=== PATIENT | female | born 1985 | race Caucasian/White ===

== ENCOUNTER 2017-01-12 11:06 | Emergency (ER) | payer BC ==
--- NOTE | ~2017-01-12 | ER ---
PATIENT'S NAME: CHRISTIE ARECHIGA [facility] AGE: 31 Y [address] ROOM: [place] [address] LOCATION: [facility] ADMIT DATE: 01/12/2017 ER/Outpatient Report DISCHARGE DATE: 01/12/2017 FAMILY PHYSICIAN: Link Canales MD ATTENDING PHYSICIAN: Matt Sandoval Time of arrival: 1106 hours. Time of evaluation: 1110 hours. CHIEF COMPLAINT: Confusion. HISTORY OF PRESENT ILLNESS: The patient is a 31-year-old female, who presents to the emergency department today with a chief complaint of confusion. She reports this started about half an hour prior to arrival. She denies any chest pain. No shortness of breath. No cough. No fevers or chills. No troubles urinating. No back pain. No diarrhea. She does have mild headache. It is 5/10 in severity. She does have some nausea. No abdominal pain. No chemical exposure. The patient was recently diagnosed with fibromyalgia and polyneuropathy and was started on Lyrica 5 days ago. She reports the pain is currently 5/10 in severity. It is sharp. Nothing makes it worse. Nothing makes it better. PAST MEDICAL HISTORY: 1. Fibromyalgia. 2. Polyneuropathy. 3. ADHD. 4. Diabetes. 5. Depression. 6. Obesity. 7. Gestational diabetes. PAST SURGICAL HISTORY: 1. Appendectomy. 2. . SOCIAL HISTORY: The patient smokes 6 to 8 cigarettes per day for 10 years. Denies any alcohol or illicit drug use. ALLERGIES: NO KNOWN DRUG ALLERGIES. MEDICATIONS: Please see list. PATIENT'S NAME: CHRISTIE ARECHIGA [facility] AGE: 31 Y [address] ROOM: [place] [address] LOCATION: [facility] ADMIT DATE: 01/12/2017 ER/Outpatient Report DISCHARGE DATE: 01/12/2017 FAMILY PHYSICIAN: Link Canales MD ATTENDING PHYSICIAN: Matt Sandoval PRIMARY CARE DOCTOR: Ge Luther PA-C. She is seen by Dr. Contreras as well. REVIEW OF SYSTEMS: All systems are reviewed by myself and negative with the exception of those discussed in HPI and past medical history. PHYSICAL EXAMINATION: VITAL SIGNS: Weight 131.2 kg, blood pressure 144/73, pulse 76, respiratory rate 16, temperature 97, and oxygen saturation 98% on room air. GENERAL: The patient is a 31-year-old female, appears of stated age, in no acute distress. HEENT: Normocephalic and atraumatic. Pupils are equal, round, and reactive to light and accommodation. Extraocular motions are intact. Nares are patent bilaterally. TMs are clear. Oropharynx is clear. NECK: Supple. There is no nuchal rigidity. No step-offs or deformities. CARDIOVASCULAR: Regular rate and rhythm. No murmurs, rubs, or gallops. LUNGS: Clear to auscultation bilaterally. No wheezes, rales, or rhonchi. ABDOMEN: Soft, nontender, and nondistended. No rebound, rigidity, or guarding. MUSCULOSKELETAL: The patient moves all 4 extremities. 5/5 muscle strength. NEUROLOGICAL: GCS 15. Alert and oriented x4. Cranial nerves 2 through 12 are intact. Normal finger to nose. Normal rapid hand movement. Equal benefits analyst strength bilaterally. Downward going toes. No clonus. 2/4 reflexes. SKIN: Warm and dry. There is no rashes or lesions noted. LABORATORY DATA AND X-RAYS: CT scan of the head is obtained. I have discussed results with the radiologist that shows no acute process. EKG is obtained and is interpreted by myself at 1203 hours that shows sinus rhythm with a rate of 70. Normal axis. Normal interval. No ST elevation, ST depression, or T-wave inversion. CBC is normal. CMP is normal. LFTs normal. Urinalysis is negative. Coags are normal. Troponin is normal. MRI of the brain is also obtained. I have discussed results with the radiologist shows no acute process. IMPRESSION: 1. Confusion. 2. Initial visit. EMERGENCY DEPARTMENT COURSE: The patient was brought back to the examination room. Seen and evaluated by myself. CT imaging and laboratory analysis obtained as described above. I have discussed the results with the patient and her mother who is at bedside. Her thought process is improved at this time. The patient did require 2 mg of PATIENT'S NAME: CHRISTIE ARECHIGA [facility] AGE: 31 Y [address] ROOM: [place], [place] [address] LOCATION: ED ADMIT DATE: 01/12/2017 ER/Outpatient Report DISCHARGE DATE: 01/12/2017 FAMILY PHYSICIAN: Link Canales MD ATTENDING PHYSICIAN: Matt Sandoval Ativan IV to obtain the MRI. The patient's laboratory analysis and workup is normal. She apparently had some abnormal nerve conduction test by Dr. Contreras. The patient's MRI is normal. There is no evidence of stroke. The patient was just started on Lyrica 5 days ago, unclear as to the exact etiology, certainly may be an adverse reaction to the medications via psychological. I see no evidence of dangerous or scary causes at this time. I do feel she is safe for further outpatient evaluation. DISPOSITION: The patient is discharged to home in good condition. DO SHIRLEY CANCINOR/modl /[id number] d: 01/12/17 1451 t: 01/12/17 1610, OUTPATIENT REPORT
[2017-01-12 11:56] LABS: BASOPHIL # 0.1 K/uL (0.0-0.2); BASOPHIL % 0.7 %; EOSINOPHIL # 0.1 K/uL (0.0-0.5); EOSINOPHIL % 1.3 %; HEMATOCRIT 39.2 % (33.0-46.0); HEMOGLOBIN 12.9 g/dL (11.0-15.0); IMMATURE GRANULOCYTE % 0.3 %; LYMPHOCYTE # 2.6 K/uL (0.8-4.0); LYMPHOCYTE % 29.1 %; MCHC 32.9 gm/dL (32.0-36.5); MCV 91.2 fl (83.0-98.0); MONOCYTE # 0.5 K/uL (0.0-1.0); MPV 10.5 fl (9.4-12.4); NEUTROPHIL # (ANC) 5.7 K/uL (1.8-7.8); NEUTROPHIL % 63.6 %; NRBC % 0 /100WBC (0-0.00); PLATELET COUNT 237 K/uL (150-450); RDW-CV 12.1 % (11.9-14.6)
[2017-01-12 12:05] LABS: INR - (THERAPEUTIC) 0.91 (0.92-1.07); PROTIME 9.5 SECONDS (9.8-11.4); PTT 27 SECONDS (25-32)
[2017-01-12 12:08] LABS: BILIRUBIN URINE NEGATIVE (NEGATIVE); BLOOD URINE NEGATIVE /UL (NEGATIVE); COLOR URINE YELLOW (YELLOW); GLUCOSE URINE NEGATIVE (NEGATIVE); KETONE URINE NEGATIVE (NEGATIVE); LEUKOCYTES URINE NEGATIVE /UL (NEGATIVE); NITRITE URINE NEGATIVE (NEGATIVE); PROTEIN URINE NEGATIVE (NEGATIVE); TURBIDITY URINE CLEAR (CLEAR); UROBILINOGEN URINE NORMAL (NORMAL)
[2017-01-12 12:16] LABS: ALBUMIN 3.5 gm/dL (3.5-5.0); ALK PHOS 66 IU/L (33-138); ALT 34 IU/L (12-78); BLOOD UREA NITROGEN 9 mg/dL (6-24); CALCIUM 8.6 mg/dL (8.5-10.5); CHLORIDE 109 mMol/L (96-110); CO2 24 mMol/L (22-32); CREATININE 0.7 mg/dL (0.5-1.1); ESTIMATED GFR (MDRD EQUATION) > 60; SODIUM 141 mMol/L (135-145); TOTAL BILIRUBIN 0.2 mg/dL (0.0-1.5); TOTAL PROTEIN 7.1 g/dL (6.0-8.4)
[2017-01-12 12:17] LABS: ANION GAP 12.4 (10.0-19.0); AST 19 IU/L (10-40); POTASSIUM 4.4 mMol/L (3.7-5.1)
== END 2017-01-12 13:56 | disposition disaster alternative care site (69) ==
LOC: GMED 11:06
PROVIDERS: Emergency Medicine
DX: R41.0 Disorientation, unspecified (principal); F17.210 Nicotine dependence, cigarettes, uncomplicated; E11.9 Type 2 diabetes mellitus without complications; F32.9 Major depressive disorder, single episode, unspecified; E66.9 Obesity, unspecified; Z90.49 Acquired absence of other specified parts of digestive tract
CPT/HCPCS: J2060